=== PATIENT | male | born 1990 | race Caucasian/White ===

== ENCOUNTER 2017-08-27 12:58 | Emergency (ER) | payer OTHER ==
[~2017-08-27] VITALS: Ht 182.9 cm; Wt 84.0 kg
[2017-08-27 13:19] VITALS: BP 119/53; PULSE 79; RESP 14; TEMP 97.9; O2SAT 92
[2017-08-27 13:45] VITALS: BP 134/64; PULSE 74; RESP 18; O2SAT 94
--- NOTE | 2017-08-27 14:07 | PD ---
HPI Chief Complaint: OD/ Ingestion Time Seen by Provider: 13:32 Travel History International Travel<30 days: No Contact w/Intl Traveler<30days: No Traveled to known affect area: No History of Present Illness HPI This is a 27-year-old male who presents to the emergency department having had brought in by police due to a heroin overdose that started half an hour prior to arrival, constant, severe. The patient says he was recreationally using heroin and hasn't used it in a while. Initially when paramedics responded the patient was somnolent and seemed to have some trouble breathing. He didn't receive any medication and he improved spontaneously. Patient adamantly denies intention of killing himself and he says this was all recreational. [facility] Past Medical History Medical History: Denies Significant Hx Past Surgical History Surgical History: No Previous Surgery Social History Alcohol Use: Yes (occ) Tobacco Use: Yes (pack a day ) Substance Use: Yes (heroin, weed) Allergies-Medications (Allergen,Severity, Reaction): Coded Allergies: No Known Allergies (Unverified , 08/27/17) Review of Systems Except as stated in HPI: all other systems reviewed are Neg Physical Exam Narrative GENERAL:Well appearing, no acute distress SKIN: Focused skin assessment warm and dry. HEAD: Atraumatic. Normocephalic. EYES: Pupils equal and round. No injection or drainage. ENT: Moist mucous membranes NECK: Trachea midline. CARDIOVASCULAR: Regular rate and rhythm. No murmur appreciated. RESPIRATORY: Clear to auscultation. Breath sounds equal bilaterally. GASTROINTESTINAL: Abdomen soft, non-tender, nondistended. MUSCULOSKELETAL: No obvious deformities. NEUROLOGICAL: Somnolent but awakens to answer questions.. No obvious cranial nerve deficits. Moving all extremities. PSYCHIATRIC: Appropriate mood and affect; insight and judgment normal. Data Data Last Documented VS Vital Signs Date Time Temp Pulse Resp B/P (MAP) Pulse Ox O2 Delivery O2 Flow Rate FiO2 08/27/17 13:45 77 18 96 Room Air 08/27/17 13:45 134/64 (87) 08/27/17 13:19 97.9 MDM Medical Decision Making Medical Screen Exam Complete: Yes Emergency Medical Condition: Yes Differential Diagnosis Intentional heroin overdose, unintentional heroin overdose, pneumonia, depression Narrative Course This is a 27-year-old male who presents to the emergency department in the setting of recreational overdose. He was brought in under a Adams act. This is inappropriate as the patient is not suicidal and his primary issue is substance abuse. I don't think we can hold him against his will. I lifted the Adams act. Pt. was observed for one hour and continued to be awake and alert and never required intervention for his overdose. I think he is appropriate for discharge. Diagnosis Primary Impression: Recreational drug use Patient Instructions: General Instructions Additional Instructions: Follow up with Leo Person in regards to psychiatric or substance related issues at: [address] [place], [place] [id number] Med/Other Pt SpecificInfo: No Change to Meds Disposition: 01 DISCHARGE HOME Condition: Stable Angela Corado MD Aug 27, 2017 14:07
[2017-08-27 15:30] VITALS: BP 128/58; PULSE 70; RESP 15; O2SAT 97
== END 2017-08-27 15:39 | disposition home or self-care (01) ==
LOC: NEPE 12:58
DX: T40.1X1A Poisoning by heroin, accidental (unintentional), initial encounter (principal); F17.200 Nicotine dependence, unspecified, uncomplicated; X58.XXXA Exposure to other specified factors, initial encounter
CPT/HCPCS: 99283